=== PATIENT | male | born 1965 | race Caucasian/White ===

== ENCOUNTER → 2017-02-24 | Outpatient (CLI) | payer OTHER ==
[~2017-02-24] MED LIST: DAYPRO600 M1 PO; SEPTRA DS 800 M1 TAB PO; TRAMADOL HCL50 MG PO
== END | disposition home or self-care (01) ==
LOC: RAD 11:54
DX: J20.9 Acute bronchitis, unspecified (principal); R05 Cough

== ENCOUNTER 2022-08-03 17:29 | Emergency (ER) | payer OTHER ==
[~2022-08-03] VITALS: Wt 68.0 kg
[2022-08-03 18:18] VITALS: BP 143/82
== END 2022-08-03 19:30 | disposition home or self-care (01) ==
LOC: ED 17:29
DX: U07.1 COVID-19 (principal); B34.9 Viral infection, unspecified; Z88.1 Allergy status to other antibiotic agents

== ENCOUNTER → 2023-10-05 | Day surgery (SDC) | payer BC ==
[~2023-10-05] VITALS: Ht 187.9 cm; Wt 106.6 kg
[~2023-10-05] MED LIST changes: +ADULT LOW DOSE81 MG PO; +ARNUITY ELLIPT50 MCG INH; +LIPITOR10 MG PO; +ZYRTEC10 M2 PO
[2023-10-05 09:00] VITALS: BP 130/79
[2023-10-05 10:30] VITALS: BP 145/63
[2023-10-05 11:14] VITALS: BP 116/75
[2023-10-05 11:30] VITALS: BP 122/78
[2023-10-05 11:44] VITALS: BP 146/84
== END | disposition home or self-care (01) ==
LOC: SDC 10-01 08:00
PROVIDERS: ATTEND Surgery
DX: Z12.11 Encounter for screening for malignant neoplasm of colon (principal); R00.1 Bradycardia, unspecified; R55 Syncope and collapse; Z85.9 Personal history of malignant neoplasm, unspecified; Z80.42 Family history of malignant neoplasm of prostate; Z87.891 Personal history of nicotine dependence; Z79.899 Other long term (current) drug therapy; Z98.890 Other specified postprocedural states; Z98.818 Other dental procedure status; Z95.0 Presence of cardiac pacemaker

== ENCOUNTER 2024-03-20 14:26 | Emergency (ER) | payer BC ==
[~2024-03-20] VITALS: Ht 187.9 cm; Wt 108.4 kg
[2024-03-20 14:35] VITALS: BP 124/77
[2024-03-20] MEDS ORDERED: Amoxicillin/Clavulanate Pota 875 MG TAB PO ONE (14:45)
[2024-03-20] MEDS ORDERED: AMOX-CLAV 875-1 EACH PO (14:47)
== END 2024-03-20 14:58 | disposition home or self-care (01) ==
LOC: ED 14:26
DX: S51.832A Puncture wound without foreign body of left forearm, initial encounter (principal); Z88.8 Allergy status to other drugs, medicaments and biological substances; Z98.890 Other specified postprocedural states; W54.0XXA Bitten by dog, initial encounter; Y93.89 Activity, other specified; Y92.89 Other specified places as the place of occurrence of the external cause; Y99.8 Other external cause status

== ENCOUNTER 2024-10-09 17:44 | Emergency (ER) | payer BC ==
[~2024-10-09] VITALS: Ht 190.5 cm; Wt 106.6 kg
[~2024-10-09 17:44] MED LIST changes: +AMOX-CLAV 875-1 EACH PO
[2024-10-09 18:03] VITALS: BP 130/83
[2024-10-09] MEDS ORDERED: KENALOG 0.1%80 GM T (18:05)
[2024-10-09 18:26] LABS: BASO % 0.5 % (0.0-1.0); EOS # 0.3 10*3/uL (0.0-0.4); EOS % 3.4 % (1.0-4.0); HEMATOCRIT 46.8 % (42.0-52.0); MEAN CELL VOLUME 90.9 fl (80.0-94.0); MEAN CORPUSCULAR HGB 30.1 pg (27.0-31.0); MEAN CORPUSCULAR HGB CONC 33.1 g/dl (33.0-37.0); MEAN PLATELET VOLUME 10.3 fl (9.6-12.3); MONO # 0.4 10*3/uL (0.1-1.0); MONO % 4.9 % (3.0-9.0); NEUT % 72.9 % (47.0-73.0); PLATELET COUNT AUTOMATED 191 10*3/uL (130-400); RED BLOOD COUNT 5.15 10*6/uL (4.50-5.90); RED CELL DISTRI WIDTH 12.5 % (0-14.5); WHITE BLOOD COUNT 8.2 10*3/uL (4.8-10.8)
[2024-10-09 18:52] LABS: BUN 11 mg/dl (9-23); CHLORIDE 108 mmol/L (98-107); POTASSIUM 3.8 mmol/L (3.4-5.1)
== END 2024-10-09 19:49 | disposition home or self-care (01) ==
LOC: ED 17:44
PROVIDERS: Physician Assistant Medical
DX: S00.83XA Contusion of other part of head, initial encounter (principal); R04.0 Epistaxis; Z88.1 Allergy status to other antibiotic agents; Z98.890 Other specified postprocedural states; W19.XXXA Unspecified fall, initial encounter; Y93.61 Activity, american tackle football; Y92.321 Football field as the place of occurrence of the external cause; Y99.8 Other external cause status